=== PATIENT | male | born 1950 | race Caucasian/White ===

== ENCOUNTER 2023-07-15 14:43 | Emergency (ER) | payer MEDICARE ==
[2023-07-15 14:54] VITALS: TEMP 98; BMI 34.3
[2023-07-15] MEDS ORDERED: ACETAMINOPHEN 1000 MG/100 ML BAG IVPB ONE (15:30)
[2023-07-15 15:48] LABS: EPI CELLS 1 /uL (0-25.1); HYALINE CASTS 0 /uL (0-3.1); PH,URINE 5.5 (5.0-8.0); URINE APPEARANCE CLEAR; URINE BACTERIA 0 /uL (0-1359); URINE BILIRUBIN NEGATIVE (NEGATIVE); URINE COLOR RED; URINE GLUCOSE (UA) NEGATIVE (NEGATIVE); URINE KETONE NEGATIVE (NEGATIVE); URINE LEUK ESTERASE NEGATIVE (NEGATIVE); URINE NITRITE NEGATIVE (NEGATIVE); URINE PROTEIN NEGATIVE (NEGATIVE); URINE RBC 5566 /uL (0-23.9); URINE UROBILINOGEN 0.2 mg/dL (0.2-1.0); URINE WBC 10 /uL (0-25.8)
[2023-07-15] MEDS ORDERED: ACETAMINOPHEN INJECTION 100 ML IVPB ONE (16:42)
[2023-07-15 17:14] LABS: BASO % 0.5 % (0-2.0); EOS % 4.4 % (0-4.5); HEMATOCRIT 39.7 % (35.4-49); HEMOGLOBIN 13.6 GM/dL (11.7-16.9); LYMPH % 35.3 % (8-40); MCH 31.2 pg (25.7-33.7); MCHC 34.1 g/dl (32.0-35.9); MEAN CELL VOLUME 91.4 fl (80-96); MONO % 10.5 % (3.8-10.2); NEUT % 49.3 % (42.8-82.8); PLATELET COUNT 296 10^3/uL (134-434); RBC 4.34 M/mm3 (4.00-5.60); RDW 13.5 % (11.9-15.9); WHITE BLOOD COUNT 4.7 K/mm3 (4.0-10.0)
[2023-07-15 17:31] LABS: POTASSIUM 5.1 mmol/L (3.5-5.1)
[2023-07-15 17:35] LABS: ALBUMIN 3.6 g/dl (3.4-5.0); BLOOD UREA NITROGEN 18.4 mg/dL (7-18); CALCIUM 9.3 mg/dL (8.5-10.1)
[2023-07-15 17:37] LABS: CREATININE 0.8 mg/dL (0.55-1.3)
[2023-07-15 17:40] LABS: BILIRUBIN,TOTAL 0.3 mg/dL (0.2-1); TOT PROT 7.5 g/dl (6.4-8.2)
[2023-07-15 17:43] LABS: INR 1.03 (0.83-1.09)
[2023-07-15 17:46] LABS: ACTIVATED PTT 35.2 SECONDS (25.2-36.5)
[2023-07-15] MEDS ORDERED: LIDOCAINE 5% TOPICAL PATCH TP ONE (21:32)
[2023-07-15] MEDS ORDERED: LIDOCAINE 4% PATCH TP ONE (21:56)
[2023-07-16 00:09] VITALS: BP 130/69; PULSE 65; RESP 18
[2023-07-16] MEDS ORDERED: LIDOCAINE PATCH REMOVAL MC SCH (10:00)
== END 2023-07-16 00:11 | disposition home or self-care (01) ==
LOC: JER 14:43
PROC: 3E033NZ Introduction of Analgesics, Hypnotics, Sedatives into Peripheral Vein, Percutaneous Approach (ICD-10-PCS; principal; 2023-07-15)
DX: R31.9 Hematuria, unspecified (principal); N50.812 Left testicular pain; R30.0 Dysuria
CPT/HCPCS: 36415; 72050-TC-FY; 72070-TC-FY; 72100-TC-FY; 76856-TC; 76870-TC; 80053; 81003; 85025; 85610; 85730; 87086; 96374; 99285-25; J0131

== ENCOUNTER 2023-10-09 03:50 | Day surgery (SDC) | payer MEDICARE ==
[2023-10-05 11:29] VITALS: BMI 25.7
[2023-10-09] MEDS ORDERED: GENTAMICIN SO4 80 MG/2 ML VIAL ONE (09:32)
[2023-10-09] MEDS ORDERED: DEXAMETHASONE SOD PHOSPHATE 4 MG/1 ML VIAL ONE (09:50)
[2023-10-09] MEDS ORDERED: PROPOFOL 20 ML ONE (09:50)
[2023-10-09] MEDS ORDERED: ONDANSETRON 4 MG/2 ML VIAL ONE (09:50)
[2023-10-09] MEDS ORDERED: MIDAZOLAM HCL 2 MG/2 ML SINGLE DOSE VIAL ONE (09:51)
[2023-10-09] MEDS ORDERED: FENTANYL CITRATE/PF 50 MCG/ML VIAL ONE (09:51)
[2023-10-09] MEDS: GENTAMICIN SO4 80 MG/2 ML VIAL IVPB ONE ×2 (10:10)
[2023-10-09] MEDS: ceFAZolin SODIUM 1 GM VIAL IVPB ONE ×2 (10:12)
[2023-10-09 10:38] VITALS: TEMP 96.8
[2023-10-09 13:33] VITALS: BP 150/80; PULSE 81; RESP 18
== END 2023-10-09 13:02 | disposition home or self-care (01) ==
LOC: JASU-SURG 03:50
PROVIDERS: ATTEND Urology
PROC: 0TF4XZZ Fragmentation in Left Kidney Pelvis, External Approach (ICD-10-PCS; principal; 2023-10-09 09:30)
DX: N20.0 Calculus of kidney (principal)